=== PATIENT | male | born 1985 | race Caucasian/White ===

== ENCOUNTER 2018-01-10 15:15 | Emergency (ER) | payer BC, OTHER ==
[2018-01-10] MEDS ORDERED: ACETAMINOPHEN 325 MG TABLET PO ONE (16:00)
[2018-01-10] MEDS ORDERED: NORMAL SALINE 1000 ML 1,000 ML IV ONE (16:00)
--- NOTE | 2018-01-10 16:47 | RADIOLOGY REPORT (SQ) ---
EXAM DESCRIPTION: CHEST 2 VIEWS COMPLETED DATE/TIME: 01/10/2018 4:37 pm REASON FOR STUDY: fever COMPARISON: None. EXAM PARAMETERS: NUMBER OF VIEWS: two views TECHNIQUE: Digital Frontal and Lateral radiographic views of the chest acquired. RADIATION DOSE: NA LIMITATIONS: none FINDINGS: LUNGS AND PLEURA: No opacities, masses or pneumothorax. No pleural effusion. MEDIASTINUM AND HILAR STRUCTURES: No masses or contour abnormalities. HEART AND VASCULAR STRUCTURES: Heart normal size. No evidence for failure. BONES: No acute findings. HARDWARE: None in the chest. OTHER: No other significant finding. IMPRESSION: NO ACUTE RADIOGRAPHIC FINDING IN THE CHEST. TECHNICAL DOCUMENTATION: JOB ID: [id number] [email or web address]- All Rights Reserved Reading location - IP/workstation name: [email or web address]
[2018-01-10 16:53] LABS: APPEARANCE,URINE SLIGHTLY-CLOUDY; BILIRUBIN,URINE NEGATIVE (NEGATIVE); COLOR,URINE YELLOW; GLUCOSE, URINE NEGATIVE (NEGATIVE); KETONES,URINE TRACE mg/dL (NEGATIVE); LEUKOCYTE ESTERASE,URINE NEGATIVE (NEGATIVE); NITRITE,URINE NEGATIVE (NEGATIVE); PROTEIN,URINE 30 mg/dL (NEGATIVE)
[2018-01-10 17:00] LABS: ABSOLUTE MONOCYTES (AUTO) 0.6 10^3/uL (0.1-1.4); ABSOLUTE NEUT (AUTO) 2.7 10^3/uL (1.7-8.2); BASOPHILS % (AUTO) 0.6 % (0-2); EOSINOPHILS % (AUTO) 0.2 % (0-6); HEMATOCRIT 45.2 % (37.9-51.0); LYMPHOCYTES % (AUTO) 22.2 % (13-45); MEAN CORPUSCULAR HEMOGLOBIN 30.3 pg (27.0-33.4); MEAN CORPUSCULAR HGB CONC 35.3 g/dL (32.0-36.0); MEAN CORPUSCULAR VOLUME 86 fl (80-97); MONOCYTES % (AUTO) 14.6 % (3-13); PLATELET COUNT 140 10^3/uL (150-450); RED BLOOD COUNT 5.27 10^6/uL (4.35-5.55); RED CELL DISTRIBUTION WIDTH 12.8 % (11.5-14.0); SEGMENTED NEUTROPHILS % (AUTO) 62.4 % (42-78); TOTAL CELLS COUNTED % (AUTO) 100 %; WHITE BLOOD COUNT 4.3 10^3/uL (4.0-10.5)
[2018-01-10 17:27] LABS: ALANINE AMINOTRANSFERASE 215 U/L (21-72); ALBUMIN 4.3 g/dL (3.5-5.0); ALKALINE PHOSPHATASE 150 U/L (38-126); ANION GAP 16 (5-19); ASPARTATE AMINO TRANSFERASE 156 U/L (17-59); BILIRUBIN,DIRECT 0.5 mg/dL (0.0-0.4); BILIRUBIN,TOTAL 1.1 mg/dL (0.2-1.3); BLOOD UREA NITROGEN 13 mg/dL (7-20); CALCIUM 9.2 mg/dL (8.4-10.2); CARBON DIOXIDE 24 mmol/L (22-30); CHLORIDE 96 mmol/L (98-107); CREATINE KINASE 288 U/L (55-170); GLUCOSE 96 mg/dL (75-110); LIPASE 74.1 U/L (23-300); POTASSIUM 3.6 mmol/L (3.6-5.0); SODIUM 136.2 mmol/L (137-145)
--- NOTE | 2018-01-10 17:58 | ER Document Report ---
ED General - General Chief Complaint: Pain All Over Stated Complaint: DIZZINESS Time Seen by Provider: 01/10/18 16:00 Mode of Arrival: Ambulatory Information source: Patient Notes: 32-year-old male presents to ED for complaint of body aches fevers chills dizziness headache sore neck and joint pain. He states it started Sunday and has increased since then. Patient went to urgent care yesterday and was discharged with Zofran for nausea. He states he stopped taking them because they were not doing him any good. Patient is alert and oriented respirations regular and unlabored and ambulates with a steady gait. His temperature was 102 when I examined him. He was given 975 of Tylenol from the pit doctor Dr. Snell. He was also ordered blood work and a CT. TRAVEL OUTSIDE OF THE U.S. IN LAST 30 DAYS: No - HPI Onset: Other Onset/Duration: Gradual - 2 days ago, Worse Quality of pain: Achy Severity: Severe Pain Level: 5 Associated symptoms: Body/muscle aches - Back pain neck pain headache total body pain, Fever, Nausea, Vomiting Exacerbated by: Denies Relieved by: Denies Similar symptoms previously: Yes Recently seen / treated by doctor: Yes - Related Data Allergies/Adverse Reactions: amoxicillin Allergy (Verified 01/10/18 15:17) Penicillins Allergy (Verified 01/10/18 15:17) Past Medical History - General Information source: Patient - Social History Smoking Status: Former Smoker Cigarette use (# per day): No Chew tobacco use (# tins/day): Yes Smoking Education Provided: No Frequency of alcohol use: Heavy Drug Abuse: None Lives with: Family Family History: Reviewed & Not Pertinent Patient has suicidal ideation: No Patient has homicidal ideation: No - Past Medical History Cardiac Medical History: Reports: None Pulmonary Medical History: Reports: None EENT Medical History: Reports: None Neurological Medical History: Reports: None Endocrine Medical History: Reports: None Renal/ Medical History: Reports: None Malignancy Medical History: Reports None GI Medical History: Reports: None Musculoskeletal Medical History: Reports None Skin Medical History: Reports None Psychiatric Medical History: Reports: None Traumatic Medical History: Reports: None Infectious Medical History: Reports: None Past Surgical History: Reports: Hx Appendectomy - Immunizations Hx Diphtheria, Pertussis, Tetanus Vaccination: Yes Review of Systems - Review of Systems Constitutional: Chills, Fever, Recent illness EENT: No symptoms reported Cardiovascular: No symptoms reported Respiratory: No symptoms reported Gastrointestinal: Nausea, Vomiting Genitourinary: No symptoms reported Male Genitourinary: No symptoms reported Musculoskeletal: Back pain, Muscle pain, Muscle stiffness, Neck pain Skin: No symptoms reported Hematologic/Lymphatic: No symptoms reported Neurological/Psychological: Headaches -: Yes All other systems reviewed and negative Physical Exam - Vital signs Vitals: Temp Pulse Resp BP Pulse Ox 100.6 F H 74 24 H 142/69 H 100 01/10/18 15:23 01/10/18 15:23 01/10/18 15:23 01/10/18 15:23 01/10/18 15:23 Interpretation: Normal, Hypertensive, Febrile - 02.2 - General General appearance: Appears well, Alert - HEENT Head: Normocephalic, Atraumatic Eyes: Normal Pupils: PERRL Ears: Normal External canal: Normal Tympanic membrane: Normal Sinus: Normal Nasal: Swelling, Clear rhinorrhea Mouth/Lips: Normal Mucous membranes: Normal Pharynx: Post nasal drainage Neck: Normal - Respiratory Respiratory status: No respiratory distress Chest status: Nontender Breath sounds: Normal Chest palpation: Normal - Cardiovascular Rhythm: Regular Heart sounds: Normal auscultation Murmur: No - Abdominal Inspection: Normal Distension: No distension Bowel sounds: Normal Tenderness: Nontender Organomegaly: No organomegaly - Back Back: Normal, Nontender - Extremities General upper extremity: Normal inspection, Nontender, Normal color, Normal ROM , Normal temperature General lower extremity: Normal inspection, Nontender, Normal color, Normal ROM , Normal temperature, Normal weight bearing. No: Johanna's sign - Neurological Neuro grossly intact: Yes Cognition: Normal Orientation: AAOx4 [place] Coma Scale Eye Opening: Spontaneous Tony Coma Scale Verbal: Oriented [place] Coma Scale Motor: Obeys Commands [place] Coma Scale Total: 15 Speech: Normal Motor strength normal: LUE, RUE, LLE, RLE Sensory: Normal - Psychological Associated symptoms: Normal affect, Normal mood - Skin Skin Temperature: Warm Skin Moisture: Dry Skin Color: Normal Course - Re-evaluation Re-evalutation: 01/11/18 02:[address]. [address]. Snell recommended a Monospot and right upper quadrant ultrasound. These were completed and negative for any acute changes. Patient's temperature came down with the Tylenol and he no longer feels the aching or pain. Patient had full range of motion to his neck on the first examination and throughout his visit. Patient never had any nuchal rigidity or any signs or symptoms of meningitis. He was discharged home with diagnosis of viral illness. He was also instructed not to drink anymore alcohol as he is a heavy drinker and to not use any Tylenol until his liver enzymes clear up. Patient and family verbalized understanding of instructions and agreement with treatment plan. Patient was given a copy of the labs at CT and ultrasound to follow-up with his primary doctor. - Vital Signs Vital signs: Temp Pulse Resp BP Pulse Ox 98.8 F 68 17 132/71 H 98 01/10/18 19:18 01/10/18 19:18 01/10/18 19:18 01/10/18 19:18 01/10/18 19:18 - Laboratory Result Diagrams: 01/10/18 16:25 01/10/18 16:25 Laboratory results interpreted by me: 01/10/18 01/10/18 01/10/18 16:25 16:25 16:25 Plt Count 140 L Monocytes % 14.6 H Sodium 136.2 L Chloride 96 L Direct Bilirubin 0.5 H AST 156 H ALT 215 H Alkaline Phosphatase 150 H Creatine Kinase 288 H Urine Protein 30 H Urine Ketones TRACE H Urine Blood MODERATE H Urine Urobilinogen 4.0 H Discharge - Discharge Clinical Impression: Viral illness, Elevated LFTs Condition: Stable Disposition: HOME, SELF-CARE Instructions: Family Physicians / Practices Additional Instructions: Viral Syndrome The physician has diagnosed a viral infection. Viruses not only cause "colds," but can cause many different symptoms including generalized aching, fever, headache, cough, diarrhea, nausea, vomiting, and fatigue. The treatment, for the most part, is simply relief of symptoms. This means that antibiotics are usually not given. Rest, fluids, pain medications and, occasionally, medication for the specific symptoms that are most bothersome will be prescribed. Use good handwashing to avoid passing the virus to others. Shared toys should be cleaned with disinfectant. Clean the toilets, sinks, and counter surfaces in bathrooms. Launder clothing in hot water. Contact the physician if you develop any new or unusual symptoms such as severe headache, stiff neck, high fever, chest pain, productive cough, or shortness of breath. You should be rechecked if you don't see marked improvement within seven to 10 days. Your liver enzymes are very high. You state you usually drink alcohol frequently, please no alcohol until your liver enzymes are back to normal. No Tylenol and until your liver enzymes are back to normal. Please follow-up with a primary doctor within the next 3-5 days. Use ibuprofen for fever or pain. If you take BC powders you cannot take ibuprofen or Advil at the same time. Please increase your fluid intake to 6-10 cups of water a day. FOLLOW-UP CARE: If you have been referred to a physician for follow-up care, call the physician s office for an appointment as you were instructed or within the next two days. If you experience worsening or a significant change in your symptoms, notify the physician immediately or return to the Emergency Department at any time for re-evaluation. Forms: Elevated Blood Pressure
--- NOTE | 2018-01-10 19:04 | RADIOLOGY REPORT (SQ) ---
EXAM DESCRIPTION: U/S ABDOMEN LIMITED W/O DOP COMPLETED DATE/TIME: 01/10/2018 6:53 pm REASON FOR STUDY: elevated lfts COMPARISON: None. TECHNIQUE: Dynamic and static grayscale images acquired of the abdomen and recorded on PACS. Additio nal selected color Doppler and spectral images recorded. LIMITATIONS: Study is limited due to overlying bowel gas. FINDINGS: PANCREAS: Pancreas could not be visualized due to overlying bowel gas. LIVER: No masses. Echotexture normal. LIVER VASCULATURE: Normal directional flow of the main portal vein. GALLBLADDER: No stones. Normal wall thickness. No pericholecystic fluid. ULTRASOUND-DETECTED SMITH'S SIGN: Negative. INTRAHEPATIC DUCTS AND COMMON DUCT: CBD and intrahepatic ducts normal caliber. No filling defects. INFERIOR VENA CAVA: Normal flow. AORTA: No aneurysm. RIGHT KIDNEY: Normal size. Normal echogenicity. No solid or suspicious masses. No hydronephrosis. No calcifications. PERITONEAL AND RIGHT PLEURAL SPACE: No ascites or effusions. OTHER: No other significant findings. IMPRESSION: Somewhat limited study as noted above. No significant intra-abdominal abnormalities wer e identified. TECHNICAL DOCUMENTATION: JOB ID: [id number] [employer]- All Rights Reserved Reading location - IP/workstation name: [email or web address]
[2018-01-10 19:19] VITALS: BP 132/71
== END 2018-01-10 19:26 | disposition home or self-care (01) ==
LOC: ER 15:15
DX: B34.9 Viral infection, unspecified (principal); R74.8 Abnormal levels of other serum enzymes; R50.9 Fever, unspecified; R42 Dizziness and giddiness; R51 Headache; M25.50 Pain in unspecified joint; M79.1 Myalgia; M54.2 Cervicalgia; M54.9 Dorsalgia, unspecified; R11.2 Nausea with vomiting, unspecified; T45.0X6A Underdosing of antiallergic and antiemetic drugs, initial encounter; Z91.128 Patient's intentional underdosing of medication regimen for other reason; Z91.14 Patient's other noncompliance with medication regimen; J34.89 Other specified disorders of nose and nasal sinuses; R09.82 Postnasal drip; Z87.891 Personal history of nicotine dependence; Z88.0 Allergy status to penicillin
CPT/HCPCS: 99284; 96360; 36415; 87040; 82550; 83690; 85025; 87077; 86308; 80053; 81001; 87186; 71046; 76705; J7030

== ENCOUNTER 2018-01-11 16:17 | Emergency (ER) | payer BC ==
[2018-01-11] MEDS ORDERED: FENTANYL CITRATE INJ/PF 100 MCG/2 ML AMPUL IV ONE (17:19)
--- NOTE | 2018-01-11 17:22 | ER Document Report ---
ED Medical Screen (RME) - General Chief Complaint: Headache, Worst Ever Stated Complaint: HEADACHE, STIFF NECK, JOINT PAIN Time Seen by Provider: 01/11/18 17:17 TRAVEL OUTSIDE OF THE [place].S. IN LAST 30 DAYS: No - HPI Patient complains to provider of: Headache and neck pain - Related Data Allergies/Adverse Reactions: amoxicillin Allergy (Verified 01/10/18 15:17) Penicillins Allergy (Verified 01/10/18 15:17) Past Medical History - Social History Chew tobacco use (# tins/day): Yes Frequency of alcohol use: Social Drug Abuse: None Renal/ Medical History: Denies: Hx Peritoneal Dialysis Past Surgical History: Reports: Hx Appendectomy - Immunizations Hx Diphtheria, Pertussis, Tetanus Vaccination: Yes Physical Exam - Vital signs Vitals: Temp Pulse Resp BP Pulse Ox 99.0 F 76 16 129/64 H 97 01/11/18 16:28 01/11/18 16:28 01/11/18 16:28 01/11/18 16:28 01/11/18 16:28 Course - Re-evaluation Re-evalutation: 01/11/18 17:20 This 32-year-old man presents for second visit related to headache as well as viral type symptoms with now a disseminated rash and persistent headache. He notes that his been unable to obtain any relief with ibuprofen, he has got some neck pain as well. Notes it is a throbbing pain. On examination he is neurologically intact save his headache, because this is a second presentation will obtain CT imaging of the head obtain repeat lab tests, will obtain Monospot given his elevated LFTs. This patient will likely require some further investigation attentionally limited imaging or further diagnostics deferred lumbar puncture and through triage at this time. - Vital Signs Vital signs: Temp Pulse Resp BP Pulse Ox 99.0 F 76 16 129/64 H 97 01/11/18 16:28 01/11/18 16:28 01/11/18 16:28 01/11/18 16:28 01/11/18 16:28
[2018-01-11] MEDS ORDERED: LIDOCAINE 1%/EPINEPHRINE INJ 20 ML VIAL INJ ONE (18:44)
[2018-01-11 18:48] LABS: ABSOLUTE LYMPHOCYTES (AUTO) 1.5 10^3/uL (0.5-4.7); ABSOLUTE MONOCYTES (AUTO) 0.7 10^3/uL (0.1-1.4); ABSOLUTE NEUT (AUTO) 2.8 10^3/uL (1.7-8.2); BASOPHILS % (AUTO) 0.5 % (0-2); EOSINOPHILS % (AUTO) 0.3 % (0-6); HEMATOCRIT 41.5 % (37.9-51.0); HEMOGLOBIN 14.9 g/dL (13.5-17.0); LYMPHOCYTES % (AUTO) 30.3 % (13-45); MEAN CORPUSCULAR HEMOGLOBIN 30.8 pg (27.0-33.4); MEAN CORPUSCULAR HGB CONC 35.9 g/dL (32.0-36.0); MEAN CORPUSCULAR VOLUME 86 fl (80-97); MONOCYTES % (AUTO) 14.7 % (3-13); PLATELET COUNT 140 10^3/uL (150-450); RED BLOOD COUNT 4.84 10^6/uL (4.35-5.55); RED CELL DISTRIBUTION WIDTH 12.5 % (11.5-14.0); SEGMENTED NEUTROPHILS % (AUTO) 54.2 % (42-78); TOTAL CELLS COUNTED % (AUTO) 100 %; WHITE BLOOD COUNT 5.1 10^3/uL (4.0-10.5)
--- NOTE | 2018-01-11 19:01 | RADIOLOGY REPORT (SQ) ---
EXAM DESCRIPTION: CT HEAD WITHOUT COMPLETED DATE/TIME: 01/11/2018 6:48 pm REASON FOR STUDY: ROLON, PAIN COMPARISON: None. TECHNIQUE: Axial images acquired through the brain without intravenous contrast. Images reviewed wi th bone, brain and subdural windows. Additional sagittal and coronal reconstructions were generated. Images stored on PACS. All CT scanners at this facility use dose modulation, iterative reconstruction, and/or weight based d osing when appropriate to reduce radiation dose to as low as reasonably achievable (ALARA). [facility]: Dose Right [facility]: CareDose [facility]: Dose Right [facility]: Teradose 4D [facility]: Lyrically [employer] RADIATION DOSE: mGy. LIMITATIONS: None. FINDINGS: VENTRICLES: Normal size and contour. CEREBRUM: No masses. No hemorrhage. No midline shift. No evidence for acute infarction. Normal gra y/white matter differentiation. No areas of low density in the white matter. CEREBELLUM: No masses. No hemorrhage. No alteration of density. No evidence for acute infarction. EXTRAAXIAL SPACES: No fluid collections. No masses. ORBITS AND GLOBE: No intra- or extraconal masses. Normal contour of globe without masses. CALVARIUM: No fracture. PARANASAL SINUSES: Mucous retention cyst in the left maxillary sinus. SOFT TISSUES: No mass or hematoma. OTHER: No other significant finding. IMPRESSION: Left maxillary sinus disease. No acute intracranial imaging findings. EVIDENCE OF ACUTE STROKE: NO. COMMENT: Quality ID # [id number]: Final reports with documentation of one or more dose reduction techniques (e.g., Automated exposure control, adjustment of the mA and/or kV according to patient size, use of iterative reconstruction technique) TECHNICAL DOCUMENTATION: JOB ID: [id number] [employer]- All Rights Reserved Reading location - IP/workstation name: [email or web address]
[2018-01-11 19:08] LABS: ALANINE AMINOTRANSFERASE 141 U/L (21-72); ALBUMIN 4.2 g/dL (3.5-5.0); ALKALINE PHOSPHATASE 129 U/L (38-126); ANION GAP 14 (5-19); ASPARTATE AMINO TRANSFERASE 74 U/L (17-59); BILIRUBIN,DIRECT 0.4 mg/dL (0.0-0.4); BILIRUBIN,TOTAL 0.8 mg/dL (0.2-1.3); BLOOD UREA NITROGEN 13 mg/dL (7-20); CALCIUM 9.2 mg/dL (8.4-10.2); CARBON DIOXIDE 24 mmol/L (22-30); CHLORIDE 98 mmol/L (98-107); GLUCOSE 98 mg/dL (75-110); LIPASE 77.8 U/L (23-300); POTASSIUM 3.7 mmol/L (3.6-5.0); SODIUM 135.7 mmol/L (137-145); TOTAL PROTEIN 7.6 g/dL (6.3-8.2)
[2018-01-11] MEDS ORDERED: METOCLOPRAMIDE HCL INJ/PF 10 MG/2 ML SDV IV ONE (19:11)
[2018-01-11] MEDS ORDERED: KETOROLAC TROMETHAMINE INJ/PF 30 MG/1 ML SDV IV ONE (19:11)
[2018-01-11] MEDS ORDERED: DOXYCYCLINE HYCLATE 100 MG TABLET PO ONE (19:12)
--- NOTE | 2018-01-11 19:13 | ER Document Report ---
ED General - General Chief Complaint: Headache Stated Complaint: HEADACHE, STIFF NECK, JOINT PAIN Time Seen by Provider: 01/11/18 17:17 Notes: Patient is a 32-year-old male without chronic medical problems who presents with 4 days of headache, neck pain, joint pain, fever, and 24 hours of a rash that started on the bilateral lower extremities but has not shown up on his chest and back. The patient was seen in the emergency department yesterday. At that time he was diagnosed with a viral illness. He states that his symptoms have not improved since being discharged. Nothing seems to improve or worsen his symptoms. He does describe the headache as a global, moderate, throbbing, constant headache. Nothing improves or worsens the headache. He denies any confusion, weakness, numbness, vomiting, or difficulty with ambulation. He states that he has diffuse joint pain but that is most prominent at the bilateral knees. He denies any history of similar symptoms in the past. He has not yet followed up with his primary care doctor regarding today's concerns. Denies any history of IV drug use. TRAVEL OUTSIDE OF THE [place]. IN LAST 30 DAYS: No - Related Data Allergies/Adverse Reactions: amoxicillin Allergy (Verified 01/10/18 15:17) Penicillins Allergy (Verified 01/10/18 15:17) Past Medical History - General Information source: Patient - Social History Smoking Status: Former Smoker Chew tobacco use (# tins/day): Yes Frequency of alcohol use: Social Drug Abuse: None Lives with: Alone Family History: Reviewed & Not Pertinent Patient has suicidal ideation: No Patient has homicidal ideation: No Renal/ Medical History: Denies: Hx Peritoneal Dialysis Past Surgical History: Reports: Hx Appendectomy - Immunizations Hx Diphtheria, Pertussis, Tetanus Vaccination: Yes Review of Systems - Review of Systems Notes: Constitutional: Positive for fever. HENT: Negative for sore throat. Eyes: Negative for visual changes. Cardiovascular: Negative for chest pain. Respiratory: Negative for shortness of breath. Gastrointestinal: Negative for abdominal pain, vomiting or diarrhea. Genitourinary: Negative for dysuria. Musculoskeletal: Positive for neck pain Skin: Positive for rash. Neurological: Positive for headache 10 point ROS negative except as marked above and in HPI. Physical Exam - Vital signs Vitals: Temp Pulse Resp BP Pulse Ox 99.0 F 76 16 129/64 H 97 01/11/18 16:28 08/24/18 16:28 01/11/18 16:28 01/11/18 16:28 01/11/18 16:28 Interpretation: Normal Notes: PHYSICAL EXAMINATION: GENERAL: Well-appearing, well-nourished and in no acute distress. HEAD: Atraumatic, normocephalic. EYES: Pupils equal round and reactive to light, extraocular movements intact, sclera anicteric, conjunctiva are normal. ENT: nares patent, oropharynx clear without exudates. Moist mucous membranes. NECK: Normal range of motion, supple without lymphadenopathy, no meningismus LUNGS: Breath sounds clear to auscultation bilaterally and equal. No wheezes rales or rhonchi. HEART: Regular rate and rhythm without murmurs ABDOMEN: Soft, nontender, normoactive bowel sounds. No guarding, no rebound. No masses appreciated. EXTREMITIES: Normal range of motion, no pitting or edema. No cyanosis. NEUROLOGICAL: Face symmetric. Tongue protrudes midline. Extraocular motions intact. Pupils are 2 mm and equally reactive. Normal speech, normal gait. 5 out of 5 strength in both the distal and proximal upper and lower extremities bilaterally. Sensation is grossly intact throughout. Finger to nose testing normal. Pronator drift normal. PSYCH: Normal mood, normal affect. SKIN: Warm, Dry, normal turgor, macular rash to the bilateral lower extremities , chest and upper back Course - Re-evaluation Re-evalutation: 01/11/18 19:15 Patient presents with ongoing headache for the past 4 days with associated arthralgias particularly to the bilateral knees, now developing rash. The patient was seen in the emergency department yesterday, was noted to have a fever, labs showed a transaminitis but otherwise unremarkable. Patient returns today due to concern of a possible blood culture being positive. This is gram- positive cocci in clusters most consistent with contamination as is only present in 1 of the blood to blood cultures. Patient is also developed a rash since being discharged starting on his bilateral lower extremities over the tibial surfaces bilaterally. Although this is not noted in the history yesterday, the patient very clearly states that he gets bit by ticks "every day all the time". 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 I have discussed with the patient that an alternative consideration would be an acute meningitis although this seems less likely given his normal mental status, duration of his symptoms and his well appearance at this point, no leukocytosis, no significant meningismus on examination. I have offered a lumbar puncture stating that this would be the best way to definitively exclude this diagnosis. After reviewing the risks and benefits of this procedure the patient has declined stating that he does not want to have a post lumbar puncture headache and is willing to accept the risk although it is small of a missed diagnosis of a bacterial meningitis vs viral meningitis. He has capacity and I think that this decision is overall reasonable given the duration of his illness, his well appearance, normal neurologic exam, evidence of meningismus, reassuring vitals and labs. His transaminitis from yesterday has down trended. The patient's clinical history is most consistent with Penelope spotted fever. He was started on doxycycline twice daily for the next 14 days. At this time will discharge with return precautions and follow-up recommendations. Verbal discharge instructions given a the bedside and opportunity for questions given. Medication warnings reviewed. Patient is in agreement with this plan and has verbalized understanding of return precautions and the need for primary care follow-up in the next 24-72 hours. - Vital Signs Vital signs: Temp Pulse Resp BP Pulse Ox 98.8 F 72 18 125/68 97 01/11/18 19:33 01/11/18 19:33 01/11/18 19:33 01/11/18 19:33 01/11/18 19:33 - Laboratory Result Diagrams: 01/11/18 18:29 01/11/18 18:29 Laboratory results interpreted by me: 01/11/18 01/11/18 18:29 18:29 Plt Count 140 L Monocytes % 14.7 H Sodium 135.7 L AST 74 H ALT 141 H Alkaline Phosphatase 129 H - Diagnostic Test Radiology reviewed: Image reviewed, Reports reviewed Radiology results interpreted by me: 01/11/18 19:18 CT head: No acute intracranial bleed or mass Discharge - Discharge Clinical Impression: Penelope spotted fever Arthralgia Qualifiers: Joint pain location: unspecified Qualified Code(s): M25.50 - Pain in unspecified joint Headache Qualifiers: Headache type: unspecified Headache chronicity pattern: acute headache Intractability: not intractable Qualified Code(s): R51 - Headache Condition: Good Disposition: HOME, SELF-CARE Additional Instructions: Your symptoms are most likely related to a diagnosis of Penelope spotted fever. This is a tickborne illness that is very common in [place]. Please take all the antibiotics even if you are feeling better. Please return to the emergency department immediately if you develop worsening of your headache, confusion, persistent vomiting, or have any other symptoms that are worrisome to you. Please follow-up with your primary care doctor in the next 24 -48 hours. Prescriptions: Doxycycline Hyclate 100 mg PO BID #28 capsule Forms: Return to Work
[2018-01-11 20:15] VITALS: BP 125/68
== END 2018-01-11 19:33 | disposition home or self-care (01) ==
LOC: ER 16:17
DX: A77.0 Spotted fever due to Rickettsia rickettsii (principal); M25.561 Pain in right knee; M25.562 Pain in left knee; R51 Headache; Z88.0 Allergy status to penicillin; Z87.891 Personal history of nicotine dependence
CPT/HCPCS: 99284; 96374; 96375; 36415; 83690; 85025; 86308; 80053; 70450; J1885; J2765; J3490